=== PATIENT | male | born 1995 | race Caucasian/White ===

== ENCOUNTER 2022-10-08 22:02 | Emergency (ER) | payer MEDICAID ==
[~2022-10-08] VITALS: Ht 180.3 cm; Wt 63.5 kg
[2022-10-08 22:10] VITALS: BP_SYST 126
--- NOTE | 2022-10-09 00:05 | NUR ---
ER Dr. Hope at bedside examining patient.
[2022-10-09] MEDS ORDERED: NAPR-1172 PO (02:49)
[2022-10-09 02:53] VITALS: BP_SYST 112
--- NOTE | 2022-10-09 02:55 | NUR ---
Patient given written and verbal discharge instructions and verbalizes understanding. ER MD Dr. Hope discussed with patient the results and treatment provided. Patient in stable condition. ID arm band removed. IV catheter removed intact and dressing applied, no active bleeding. Patient educated on pain management and to follow up with PMD. Pain Scale 0. Opportunity for questions provided and answered. Medication side effect fact sheet provided.
== END 2022-10-09 02:53 | disposition home or self-care (01) ==
LOC: SED 22:02
DX: S20.212A Contusion of left front wall of thorax, initial encounter (principal); S30.1XXA Contusion of abdominal wall, initial encounter; S30.0XXA Contusion of lower back and pelvis, initial encounter; Z79.899 Other long term (current) drug therapy; W11.XXXA Fall on and from ladder, initial encounter; Y93.89 Activity, other specified; Y92.89 Other specified places as the place of occurrence of the external cause; Y99.8 Other external cause status
CPT/HCPCS: 99285; 71260; 76376; 74177; Q9967

== ENCOUNTER 2023-04-15 11:05 | Emergency (ER) | payer SELFPAY ==
[~2023-04-15] VITALS: Ht 180.3 cm; Wt 67.1 kg
[~2023-04-15 11:05] MED LIST: FLUORESCEIN SODIUM 1 MG OPHTHALMIC STRIP OP ONE; NAPR-1172 PO; PROPARACAINE (OPTHANINE 0.5%) 15 ML DROPS OP ONE
[2023-04-15 11:27] VITALS: BP_SYST 132; PULSE 68; RESP 16; TEMP 97.7; O2SAT 99
[2023-04-15] MEDS ORDERED: HYDR-3927 PO (12:06)
[2023-04-15] MEDS ORDERED: IBUP-1971 PO (12:06)
[2023-04-15] MEDS ORDERED: OFLO5DRO6 EACH EYE (12:07)
[2023-04-15 12:40] VITALS: BP_SYST 132; PULSE 65; RESP 18; TEMP 98.6; O2SAT 98
== END 2023-04-15 12:41 | disposition home or self-care (01) ==
LOC: SED 11:05
DX: S05.02XA Injury of conjunctiva and corneal abrasion without foreign body, left eye, initial encounter (principal); Z79.899 Other long term (current) drug therapy; Y04.0XXA Assault by unarmed brawl or fight, initial encounter; Y93.89 Activity, other specified; Y92.89 Other specified places as the place of occurrence of the external cause; Y99.8 Other external cause status
CPT/HCPCS: 99283